=== PATIENT | male | born 1960 | race Caucasian/White ===

== ENCOUNTER 2017-02-23 17:11 | Inpatient (IN) | payer OTHER ==
[~2017-02-23] VITALS: Ht 172.7 cm; Wt 68.5 kg
[2017-02-23] MEDS: FAMOTIDINE 20 MG TAB PO SCH (01:20)
[~2017-02-23 17:11] MED LIST: CIPR500T4 PO; CIPR7.5D4 RIGHT EAR; IBUP-1542 PO
[2017-02-23] MEDS ORDERED: SOD CHLORIDE 0.9% 1,000 ML IV STA (20:34)
[2017-02-23] MEDS ORDERED: ASPIRIN 325 MG TAB PO STA (20:34)
[2017-02-23] MEDS ORDERED: LISI2.5T59 PO (20:41)
[2017-02-23 20:58] LABS: ADD SCAN DIFF NO
[2017-02-23 21:02] LABS: BASOPHIL # 0.1 10^3/ul (0.0-0.1); BASOPHILS % 0.5 % (0.0-2.0); EOSINOPHILS # 0.2 10^3/ul (0.0-0.5); EOSINOPHILS % 1.9 % (0.0-7.0); HEMATOCRIT 45.4 % (42.0-52.0); HEMOGLOBIN 14.6 g/dl (14.0-18.0); LYMPHOCYTES # 4.8 10^3/ul (0.8-2.9); LYMPHOCYTES % 43.8 % (15.0-51.0); MEAN CORPUSCULAR HEMOGLOBIN 26.8 pg (29.0-33.0); MEAN CORPUSCULAR HGB CONC 32.2 g/dl (32.0-37.0); MEAN CORPUSCULAR VOLUME 83.3 fl (82.0-101.0); MONOCYTE # 0.7 10^3/ul (0.3-0.9); MONOCYTES % 6.1 % (0.0-11.0); NEUTROPHIL # 5.2 10^3/ul (1.6-7.5); NEUTROPHILS % 47.5 % (39.0-77.0); PLATELET COUNT 213 10^3/UL (140-415); RED BLOOD COUNT 5.45 10^6/ul (4.70-6.10); RED CELL DISTRIBUTION WIDTH 13.4 % (11.5-14.5); WHITE BLOOD COUNT 10.9 10^3/ul (4.8-10.8)
[2017-02-23 21:05] LABS: INR 0.91; PARTIAL THROMBOPLASTIN TIME 26.9 Sec (25.0-35.0); PROTIME 12.3 Sec (12.2-14.2)
[2017-02-23 21:10] LABS: ALANINE AMINOTRANSFERASE 42 IU/L (13-69); ALBUMIN 4.3 g/dl (3.3-4.9); ALBUMIN/GLOBULIN RATIO 1.07; ALKALINE PHOSPHATASE 92 IU/L (42-121); ANION GAP 19 (8-16); ASPARTATE AMINO TRANSFERASE 23 IU/L (15-46); BILIRUBIN,INDIRECT 0.2 mg/dl (0-1.1); BILIRUBIN,TOTAL 0.2 mg/dl (0.2-1.3); BLOOD UREA NITROGEN 15 mg/dl (7-20); CALCIUM 9.5 mg/dl (8.4-10.2); CARBON DIOXIDE 25 mmol/L (21-31); CHLORIDE 102 mmol/L (97-110); CREATININE 1.28 mg/dl (0.61-1.24); GLUCOSE 99 mg/dl (70-220); SODIUM 142 mmol/L (135-144); TOTAL PROTEIN 8.3 g/dl (6.1-8.1)
[2017-02-23 21:23] LABS: TROPONIN-I < 0.012 ng/ml (0.00-0.12)
--- NOTE | 2017-02-23 21:26 | RADRPT ---
PROCEDURE: CT Brain without. CLINICAL INDICATION: CVA. TECHNIQUE: A CT of the brain was performed on multidetector high-resolution CT scanner utilizing a xial sections from the skull base through the vertex without contrast. The scan was reviewed in sof t tissue brain and high frequency resolution bone algorithm windows. Images were reviewed on a high -resolution PACS workstation. One or more the following does reduction techniques were utilized: Aut omated exposure control, adjustment of the mA/ or kV according to patient's size, or use of iterativ e reconstruction technique. The exam CTDI = 43.68 mGy and the DLP = 720.23 mGy-cm. COMPARISON: None available. FINDINGS: The ventricles and sulci are mildly prominent indicative of volume loss. There is no intracranial h emorrhage, mass effect or midline shift. No abnormal intra-axial or extra-axial fluid collections a re seen. The pierre/white matter differentiation is preserved. There are mild scattered foci of hypoattenuation in the white matter, which are nonspecific in etiol ogy but likely reflect chronic small vessel ischemic changes. The visualized paranasal sinuses are e ssentially clear. IMPRESSION: 1. No acute intracranial hemorrhage, transcortical infarction or mass effect. Please note MRI is mo re sensitive for detection of acute ischemia and can be obtained as clinically warranted. 2. Mild chronic small vessel ischemic changes. 3. Mild generalized cerebral volume loss. RPTAT: HFN .Adama Stephenson MD, MD Date Time Electronically viewed and signed by .Adama Stephenson MD, MD on 02/23/2017 21:25 .N/
--- NOTE | 2017-02-23 21:27 | RADRPT ---
PROCEDURE: XR Chest. CLINICAL INDICATION: Stroke. TECHNIQUE: Single frontal chest x-ray. COMPARISON: None available FINDINGS: The cardiomediastinal silhouette is unremarkable. Aortic atherosclerotic vascular calcifications and tortuosity are identified. No pneumothorax, pleural effusion or consolidation is seen. No acute osseous abnormality is noted. IMPRESSION: 1. No acute cardiopulmonary abnormality. 2. Aortic tortuosity and atherosclerosis. RPTAT: HFN .Adama Stephenson MD, Date Time Electronically viewed and signed by .Adama Stephenson MD, on 02/23/2017 21:27 .N/
[2017-02-23] MEDS ORDERED: NICARDipine HCL 30 MG CAPSULE PO ONE ×2 (21:30→23:30)
[2017-02-23] MEDS ORDERED: hydrALAzine 20 MG INJ IV ONE ×2 (21:30→23:30)
--- NOTE | 2017-02-23 21:53 | ERA ---
ER Documentation Chief Complaint Date/Time DATE: 02/23/17 TIME: 21:48 Chief Complaint LEFT SIDE BODY NUMBNESS,DIZZINESS ONSET LAST NIGHT HPI This is a 56-year-old male who said he was driving from [place] today. He said that around 7 PM last night stopped her arrest during driving and noticed that his left arm and leg were very numb and heavy. He said he was trying to walk and he had to drag his leg. He said that he had some mild blurry vision as well. No speech changes that he can think of. He said he got back in the car and drove all night to [place]. He said he slept most of the day today because he was fatigued and he wanted to see if he would be better when he woke up. He said when he woke up that still had the symptoms but they were less. He said currently he has some numbness to his left arm and his left leg feels slightly heavy. He also states when he walks he has to hold onto things because he feels like he is going to walk to the left side ROS All systems reviewed and are negative except as per history of present illness. Medications Home Meds Reported Medications Lisinopril* (Lisinopril*) 2.5 Mg Tablet, 2.5 MG PO DAILY, #30 TAB 02/23/17 Discontinued Reported Medications [none] Unknown Strength No Conflict Check 08/14/15 Discontinued Scripts Ibuprofen* (Motrin*) 600 Mg Tab, 600 MG PO Q6H Y for PAIN AND OR ELEVATED TEMP, #30 TAB Prov:JESSICA MATHIS MOHS SURGEON/GENERAL DERMATOLOGIST 08/14/15 Ciprofloxacin Hcl* (Ciprofloxacin Hcl*) 500 Mg Tablet, 500 MG PO BID for 7 Days , TAB Prov:JESSICA MATHIS MOHS SURGEON/GENERAL DERMATOLOGIST 08/14/15 Ciprofloxacin Hcl/Dexameth (Ciprodex Otic Suspension) 7.5 Ml Drops.susp, 4 DROP RIGHT EAR BID for 7 Days, EA Prov:JESSICA MATHIS NP 08/14/15 Allergies Allergies: Coded Allergies: No Known Allergy (Unverified , 02/23/17) PMhx/Soc History of Surgery: No Anesthesia Reaction: No Hx Neurological Disorder: No Hx Respiratory Disorders: No Hx Cardiac Disorders: No Hx Psychiatric Problems: No Hx Miscellaneous Medical Probl: Yes (HTN) Hx Alcohol Use: Yes (occasionally) Hx Substance Use: No Hx Tobacco Use: Yes FmHx Family History: No coronary disease Physical Exam Vitals Vital Signs Date Time Temp Pulse Resp B/P Pulse Ox O2 Delivery O2 Flow Rate FiO2 02/23/17 17:19 98.2 85 18 181/103 99 Physical Exam Const: Well-developed, well-nourished Head: Atraumatic, normocephalic Eyes: Normal Conjunctiva, PERRLA, EOMI, normal sclera, no nystagmus ENT: Normal External Ears, Nose and Mouth, moist mucus membranes. Neck: Full range of motion. No meningismus, no lymphadenopathy. Resp: Clear to auscultation bilaterally, no wheezing, rhonchi, rales Cardio: Regular rate and rhythm, no murmurs, S1 S2 present Abd: Soft, non tender x 4, non distended. Normal bowel sounds, no guarding or rebound, no pulsitile abdominal masses or bruits Skin: No petechiae or rashes, no ecchymosis , no maculopapular rash Back: No midline or flank tenderness Ext: No cyanosis, or edema, FROM x 4, normal inspection, neurovascularly intact x 4 Neur: Awake and alert, STR 5/5 x 3 left leg is 4 out of 5, sensation intact x left upper extremity is having a loss of sensation mild decreased sensation in the left cheek, no focal findings, cerebellum intact Psych: Normal Mood and Affect Result Diagram: 02/23/17201202/23/172012 Results 24 hrs Laboratory Tests Test 02/23/17 20:13 White Blood Count 10.910^3/ul Red Blood Count 5.4510^6/ul Hemoglobin 14.6g/dl Hematocrit 45.4% Mean Corpuscular Volume 83.3fl Mean Corpuscular Hemoglobin 26.8pg Mean Corpuscular Hemoglobin Concent 32.2g/dl Red Cell Distribution Width 13.4% Platelet Count 59360^3/UL Mean Platelet Volume 11.0fl Neutrophils % 47.5% Lymphocytes % 43.8% Monocytes % 6.1% Eosinophils % 1.9% Basophils % 0.5% Nucleated Red Blood Cells % 0.0/100WBC Neutrophils # 5.210^3/ul Lymphocytes # 4.810^3/ul Monocytes # 0.710^3/ul Eosinophils # 0.210^3/ul Basophils # 0.110^3/ul Nucleated Red Blood Cells # 0.010^3/ul Prothrombin Time 12.3Sec Prothrombin Time Ratio 1.0 INR International Normalized Ratio 0.91 Activated Partial Thromboplast Time 26.9Sec Sodium Level 142mmol/L Potassium Level 4.0mmol/L Chloride Level 102mmol/L Carbon Dioxide Level 25mmol/L Anion Gap 19 Blood Urea Nitrogen 15mg/dl Creatinine 1.28mg/dl Glucose Level 99mg/dl Calcium Level 9.5mg/dl Total Bilirubin 0.2mg/dl Direct Bilirubin 0.00mg/dl Indirect Bilirubin 0.2mg/dl Aspartate Amino Transf (AST/SGOT) 23IU/L Alanine Aminotransferase (ALT/SGPT) 42IU/L Alkaline Phosphatase 92IU/L Troponin I < 0.012ng/ml Total Protein 8.3g/dl Albumin 4.3g/dl Globulin 4.00g/dl Albumin/Globulin Ratio 1.07 Current Medications Medications (Trade) Dose Ordered Sig/Josefina Route PRN Reason Start Time Stop Time Status Last Admin Dose Admin Sodium Chloride (NS) 1,000 ml @ 1,000 mls/hr Q1H STAT IV 02/23/17 20:34 02/23/17 21:33 DC 02/23/17 20:43 Aspirin (Aspirin) 325 mg ONCE STAT PO 02/23/17 20:34 02/23/17 20:41 DC 02/23/17 20:48 Nicardipine HCl (Cardene) 30 mg ONCE ONCE PO 02/23/17 21:30 02/23/17 21:31 DC 02/23/17 21:45 Hydralazine HCl (Apresoline) 10 mg ONCE ONCE IV 02/23/17 21:30 02/23/17 21:31 DC 02/23/17 21:46 Procedures/MDM EKG: Rate/Rhythm: Normal Sinus Rhythm,NL intervals QRS, ST, QT: NORMAL MS, QRS, QT] Impression: NORMAL EKG PROCEDURE: CT Brain without. CLINICAL INDICATION: CVA. TECHNIQUE: A CT of the brain was performed on multidetector high-resolution CT scanner utilizing axial sections from the skull base through the vertex without contrast. The scan was reviewed in soft tissue brain and high frequency resolution bone algorithm windows. Images were reviewed on a high- resolution PACS workstation. One or more the following does reduction techniques were utilized: Automated exposure control, adjustment of the mA/ or kV according to patient's size, or use of iterative reconstruction technique. The exam CTDI = 43.68 mGy and the DLP = 720.23 mGy-cm. COMPARISON: None available. FINDINGS: The ventricles and sulci are mildly prominent indicative of volume loss. There is no intracranial hemorrhage, mass effect or midline shift. No abnormal intra- axial or extra-axial fluid collections are seen. The pierre/white matter differentiation is preserved. There are mild scattered foci of hypoattenuation in the white matter, which are nonspecific in etiology but likely reflect chronic small vessel ischemic changes. The visualized paranasal sinuses are essentially clear. IMPRESSION: 1. No acute intracranial hemorrhage, transcortical infarction or mass effect. Please note MRI is more sensitive for detection of acute ischemia and can be obtained as clinically warranted. 2. Mild chronic small vessel ischemic changes. 3. Mild generalized cerebral volume loss. RPTAT: HFN .Adama Stephenson MD, MD Date Time Electronically viewed and signed by .Adama Stephenson MD, MD on 02/23/2017 21: 25 .N/ CC: NGUYEN FELIX DO PROCEDURE: XR Chest. CLINICAL INDICATION: Stroke. TECHNIQUE: Single frontal chest x-ray. COMPARISON: None available FINDINGS: The cardiomediastinal silhouette is unremarkable. Aortic atherosclerotic vascular calcifications and tortuosity are identified. No pneumothorax, pleural effusion or consolidation is seen. No acute osseous abnormality is noted. IMPRESSION: 1. No acute cardiopulmonary abnormality. 2. Aortic tortuosity and atherosclerosis. RPTAT: HFN .Adama Stephenson MD, MD Date Time Electronically viewed and signed by .Adama Stephenson MD, MD on 02/23/2017 21: 27 .N/ CC: NGUYEN FELIX DO Patient states that he did not take his blood pressure medication for the past couple of days. Patient's blood pressure is elevated here 224/116. He is given Cardene and hydralazine Patient was given IV fluids and aspirin. The patient is having TIA hopefully. The symptoms are my getting much better but they are still there. We will have to wait to see if these resolve. He needs to be admitted for MRI and further workup for stroke/TIA Departure Diagnosis: Primary Impression: CVA (cerebral vascular accident) Qualified Code: I63.9 - Cerebrovascular accident (CVA), unspecified mechanism Additional Impression: Uncontrolled hypertension Condition: Stable NGUYEN FELIX DO Feb 23, 2017 21:52
[2017-02-23] MEDS ORDERED: SOD CHLORIDE 0.9% 1,000 ML IV SCH (22:02)
[2017-02-23] MEDS ORDERED: MAGNESIUM HYDROXIDE 30ML CUP PO PRN (22:30)
[2017-02-23] MEDS ORDERED: BISACODYL 10 MG SUPP PR PRN (22:30)
[2017-02-23] MEDS ORDERED: HYDROCODONE/APAP (5/325) TAB PO PRN (22:30)
[2017-02-23] MEDS ORDERED: hydrALAzine 20 MG INJ IV PRN (22:30)
[2017-02-23] MEDS ORDERED: ATORVASTATIN 40 MG TAB PO SCH (22:30)
[2017-02-23] MEDS ORDERED: ACETAMINOPHEN 325 MG TAB PO PRN (22:30)
[2017-02-23] MEDS ORDERED: NACL 0.9% 3 ML SYG IV SCH (22:30)
[2017-02-23] MEDS ORDERED: ONDANSETRON 4 MG INJ IV PRN ×2 (22:30)
[2017-02-23] MEDS ORDERED: DOCUSATE SODIUM 100 MG CAP PO PRN (22:30)
[2017-02-24] VITALS (7 sets, daily range): BP systolic 155–169; BP diastolic 87–99; PULSE 72–84; RESP 18–20; TEMP 97.7; Ht 172.7 cm; Wt 68.5 kg
--- NOTE | 2017-02-24 01:08 | RADRPT ---
PROCEDURE: MR Brain without contrast. CLINICAL INDICATION: Left-sided weakness. TECHNIQUE: An MRI of the brain was performed on a 1.5 sana scanner utilizing the following sequen jaylen: Sagittal T1 weighted, axial T2 weighted, axial FLAIR, coronal GRE, and axial diffusion weighted with ADC mapping. COMPARISON: None FINDINGS: 6 mm focus of restricted diffusion compatible with acute / early subacute areas of ischemic infarcti on in the right posterior theodore radiata and posterior limb of the internal capsule. Punctate focus of restricted diffusion in the right posterior basal ganglia. No hemorrhagic transformation, edema ,. No hypointense signal abnormalities are seen on the GRE images to suggest the presence of blood degr adation products. Scattered nonspecific T2 signal hyperintensity foci in the subcortical and periven tricular white matter compatible with sequelae of mild chronic microvascular ischemic injury. Remote lacunar infarct in the left basal ganglia. The brain parenchyma is grossly normal in morphology with preservation of pierre white differentiation . Prominent ventricles and subarachnoid spaces compatible with mild central cerebral volume loss. The posterior fossa contents, brainstem, seventh - eighth cranial nerve complexes, pituitary axis, o rbits, paranasal sinuses, and mastoid air cells are unremarkable. Normal flow voids are visible in the proximal intracranial arteries and dural sinuses, indicating pa tency. IMPRESSION: 1. Small foci of restricted diffusion compatible with acute / subacute ischemic infarction within th e right posterior basal ganglia/posterior limb of the internal capsule and the theodore radiata . No hemorrhagic transformation. 2. Mild chronic microvascular ischemic disease. 3. Mild central cerebral volume loss. RPTAT:AAJJ Physician Felisa Date Time Electronically viewed and signed by Physician Felisa on 02/24/2017 01:07 MADI/
--- NOTE | 2017-02-24 01:12 | RADRPT ---
PROCEDURE: MRA Brain. CLINICAL INDICATION: New TECHNIQUE: An MRA of the brain was performed on a 1.5 sana scanner utilizing 3-D [id number] MR angiography technique. Source and MIP images were reviewed. COMPARISON: None FINDINGS: The internal carotid arteries are patent and normal in caliber. The anterior cerebral arteries and t erminal branches are patent and normal in caliber . The middle cerebral arteries and terminal branc hes are patent and normal in caliber. The anterior posterior communicating arteries are intact. The posterior cerebral arteries internal b ranches are patent and normal in caliber. The basilar artery and vertebral arteries are patent and normal in caliber. The left vertebral art leti is dominant. Hypoplastic distal right vertebral artery. No evidence of vascular malformation or intracranial aneurysm. IMPRESSION: 1. Normal MRA of the brain. 2. Dominant left vertebral artery with hypoplastic distal right vertebral artery. RPTAT:AAJJ Physician Felisa Date Time Electronically viewed and signed by Physician Felisa on 02/24/2017 01:12 MADI/
[2017-02-24] MEDS: LISINOPRIL 10 MG TAB PO SCH ×2 (01:20→09:57)
[2017-02-24 07:40] LABS: ALBUMIN 3.9 g/dl (3.3-4.9); ALBUMIN/GLOBULIN RATIO 1.08; BILIRUBIN,INDIRECT 0.4 mg/dl (0-1.1); BILIRUBIN,TOTAL 0.4 mg/dl (0.2-1.3); CALCIUM 9.8 mg/dl (8.4-10.2); CREATININE 1.26 mg/dl (0.61-1.24); MAGNESIUM 2.1 mg/dl (1.7-2.5); POTASSIUM 3.9 mmol/L (3.5-5.1); TOTAL PROTEIN 7.5 g/dl (6.1-8.1)
[2017-02-24] MEDS ORDERED: ASPIRIN 81 MG TAB PO SCH (09:00)
[2017-02-24] MEDS ORDERED: ENOXAPARIN 40 MG/0.4 ML SYG SC SCH (09:00)
[2017-02-24] MEDS ORDERED: SOD CHLORIDE 0.9% 1,000 ML IV SCH (09:30)
--- NOTE | 2017-02-24 09:37 | RADRPT ---
PROCEDURE: Carotid ultrasound CLINICAL INDICATION: Stroke, carotid bruits TECHNIQUE: Jane scale, color doppler, spectral doppler ultrasound of the bilateral carotid and ulysses tebral arteries. This study indirectly references the measurement of the distal ICA diameter as the denominator for s tenosis measurement. Validated velocity measurements with angiographic measurements, velocity criter ia are extrapolated from diameter data as defined by: *Cartoid artery stenosis: jane-scale and Doppl er US diagnosis. Society of Radiologists in Ultrasound Consensus Conference. Radiology 2003; 229: 34 0-346. SRU Consensus Conference Criteria for the Diagnosis of Carotid Artery Stenosis* Degree of Stenosis, % ICA PSV, cm/sec Plaque Estimate, % ICA/CCA PSV Ratio Normal <125 None <2.0 <50 <125 <50 <2.0 50 69 125-230 >50 2.0-4.0 >70 but less than near occlusion >230 >50 <4.0 Near occlusion High, low, or undetectable Visible Variable Total occlusion Undetectable Visible, no detectable lumen Not applicable COMPARISON: No prior studies are available for comparison. FINDINGS: Location Right CCA69 cm/sec Prox ICA 48 cm/sec Mid ICA62 cm/sec Dist ICA40 cm/sec ECA70 cm/sec ICA/CCA1.2 Left CCA82 cm/sec Prox ICA 45 cm/sec Mid ICA53 cm/sec Dist ICA55 cm/sec ECA77 cm/sec ICA/CCA0.8 Plaque burden: No significant plaque is seen. Antegrade flow is seen within the vertebral arteries bilaterally. IMPRESSION: No evidence of a hemodynamically significant carotid stenosis. RPTAT: AADD .Yared Culver MD, Date Time Electronically viewed and signed by .Yared Culver MD, MD on 02/24/2017 09:37 .B/
[2017-02-24] MEDS: FAMOTIDINE 20 MG TAB PO SCH (09:57)
--- NOTE | 2017-02-24 12:17 | RADRPT ---
Echocardiogram Report Patient Name: PAOLO WALL Gender: Male Date: 1960 Study Date: 24-Feb-2017 [employer]: Rudy Chin [facility] Location: 3303 Ref. Physician: SAMANTHA JEFFERSON Quality: Good Procedures: Transthoracic echocardiogram with complete 2D, M-Mode, and doppler examination. Indications: Cerebrovascular Accident. Hypertension. 2D/M Mode Doppler Measurement Value Normal Ranges Measurement Value Normal Ranges LVIDd 2D 4.1 3.5 - 5.6 cm AV Peak Kendall 1.2 m/sec LVIDs 2D 3.2 2.1 - 4.1 cm AV Peak PG 5.4 mmHg LVPWd 2D 1.7 0.6 - 1.1 cm LVOT Peak Kendall 1.1 m/sec IVSd 2D 1.7 0.6 - 1.1 cm LVOT Peak PG 4.8 mmHg AoR Diam 2D 3.3 2.0 - 3.7 cm MV E Peak Kendall 0.3 m/sec EDV 2D 75.9 cm3 MV A Peak Kendall 0.7 m/sec ESV 2D 32.6 cm3 MV E/A 0.5 LA Dimen 2D 2.8 2.3 - 4.0 cm MV Decel Time 136 msec MV Decel [place] 2 MV E/A 0.5 TR Peak Kendall 1.8 m/sec TR Peak PG 13.1 mmHg RVSP 16.0 mmHg Findings Left Ventricle: Normal left ventricular systolic function. Normal left ventricular cavity size. Severe concentric left ventricular hypertrophy. Ejection fraction is visually estimated at 65 %. Tissue Doppler/Mitral Doppler indices are consistent with impaired relaxation (Stage I diastolic dysfunction). Right Ventricle: Normal right ventricular size. Normal right ventricular systolic function. Left Atrium: The left atrium is normal in size. Right Atrium: The right atrium is normal in size. Mitral Valve: Normal appearance of the mitral valve. Mild mitral annular calcification. Trace mitral regurgitation. Aortic Valve: Normal appearance of the aortic valve. No significant aortic stenosis or insufficiency. Tricuspid Valve: Normal appearance of the tricuspid valve. Estimated peak PA systolic pressure 16 mmHg. There is trace tricuspid regurgitation. Pulmonic Valve: Normal pulmonic valve appearance. There is trace pulmonic regurgitation. Pericardium: Normal pericardium with no significant pericardial effusion. Aorta: Normal aortic root. IVC: Normal size and normal respiratory collapse consistent with normal right atrial pressure. Conclusions 1.Normal left ventricular systolic function. Normal left ventricular cavity size. Severe concentric left ventricular hypertrophy. Ejection fraction is visually estimated at 65 %. Tissue Doppler/Mitral Doppler indices are consistent with impaired relaxation (Stage I diastolic dysfunction). 2.Normal right ventricular size. Normal right ventricular systolic function. 3.The left atrium is normal in size. 4.The right atrium is normal in size. 5.No significant valvular stenosis or regurgitation seen. 6.Normal pericardium with no significant pericardial effusion. Electronically Signed By: Selvin Nava 24-Feb-2017 12:16:33 -0700 Patient Name: PAOLO WALL Study Date: 24-Feb-2017 [id number]
--- NOTE | 2017-02-24 13:09 | PDOCDIS ---
Discharge Instructions CONDITION Patient Condition: Stable HOME CARE INSTRUCTIONS: Diet Instructions: Low Fat /Cholesterol ACTIVITY: Activity Restrictions: Rest between Activity FOLLOW UP/APPOINTMENTS Follow-up Plan Follow-up with primary care physician regarding hypertension and subacute CVA with no residual deficit in 1 week ANJUM JEFFERSON Feb 24, 2017 13:09
--- NOTE | 2017-02-24 13:09 | HP ---
Date/Time of Note Date/Time of Note DATE: 02/24/17 TIME: 12:35 Assessment/Plan VTE Prophylaxis VTE Prophylaxis Intervention: LMWH Lines/Catheters IV Catheter Type (from [facility]): Peripheral IV Assessment/Plan Assessment/Plan 56-year-old male: 1. 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 I have counseled him regarding being compliant with his medications and also to stop smoking. No arrhythmias, EKG with normal sinus rhythm, 2D echocardiogram within normal therefore continue aspirin for secondary prevention of CVA Blood pressure control with lisinopril 10 mg p.o. twice daily Patient has no residual neurological deficit therefore he will be discharged home today with outpatient follow-up with his PCP. 2. Hypertension: Lisinopril increased to 10 mg p.o. twice daily. 3. Hyperlipidemia: Patient has been started on Lipitor 4. Heavy tobacco use: He will be offered nicotine patch, he agrees to quit. 5. Mild renal insufficiency: Resolving, patient advised to drink enough water. 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 Patient reports that Wednesday night he drove from [place], he had the episode of left hemiparesis both upper and lower extremity. He managed to get to his house, he took his lisinopril for blood pressure and went to bed. Couple hours later he woke up with persistent symptoms, he took Advil and went back to bed. He woke up later that evening asymptomatic, no hemiparesis. He did not seek medical attention at that time. However yesterday morning he woke up again with mild to moderate left hemiparesis therefore he came to the emergency department. Since by the time he presented to the emergency department is been at least 24 hours, no stroke code was called. He was found to be hypertensive with systolic blood pressures in the 200. Hypertension was treated, CT head was done which was negative, hemiparesis was improving. MRIs were done that did confirm a small foci of restricted diffusion compatible with acute / subacute ischemic infarction within the right posterior basal ganglia/posterior limb of the internal capsule and the theodore radiata . Patient has been seen by physical therapy this morning, he is asymptomatic at this time. No signs of arrhythmia on telemetry. He has been counseled to stop smoking, he will be provided with a nicotine patch. He will be placed on aspirin for secondary prevention and his lisinopril dosing has been increased for blood pressure control. He will be discharged home today with outpatient follow-up with his primary care physician ROS Constitutional: no complaints Respiratory: no complaints Cardiovascular: no complaints Gastrointestinal: no complaints Genitourinary: no complaints Musculoskeletal: no complaints Neurologic: focal-weakness (Left hemiparesis resolved) Endocrine: no complaints PMH/Family/Social Past Medical History Medical History: hypertension Past Surgical History Past Surgical Hx: no surgical history Family History Significant Family History: no pertinent family hx Social History Alcohol Use: rarely Smoking Status: Current every day smoker (At least one pack a day for the past 30 years at least) Drug Use: none Exam/Review of Systems Vital Signs Vitals Vital Signs Date Time Temp Pulse Resp B/P Pulse Ox O2 Delivery O2 Flow Rate FiO2 02/24/17 12:19 72 02/24/17 11:39 97.7 18 155/93 98 02/24/17 07:31 Room Air Exam Constitutional: alert, oriented, well developed Respiratory: clear to auscultation, normal air movement Cardiovascular: nl pulses, regular rate and rhythm Gastrointestinal: non-tender, soft Musculoskeletal: nl extremities to inspection, other (No edema, clubbing or cyanosis) Extremities: normal pulses 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 daily Current Medications Ondansetron HCl (Zofran Inj) 4 mg Q6H PRN IV NAUSEA AND/OR VOMITING; Start at 22:30 Aspirin (Aspirin) 81 mg DAILY PO Last administered on 02/24/17t 09:58; Admin Dose 81 MG; Start 02/24/17 at 09:00 Acetaminophen/ Hydrocodone Bitart (Rayne (5/325)) 1 tab Q6H PRN PO PAIN LEVEL 4 -6; Start 02/23/17 at 22:30 Docusate Sodium (Colace) 100 mg Q12H PRN PO CONSTIPATION; Start 02/23/17 at 22: 30 Magnesium Hydroxide (Milk Of Mag) 30 ml DAILY PRN PO CONSTIPATION; Start at 22:30 Bisacodyl (Dulcolax Supp) 10 mg DAILY PRN OR CONSTIPATION; Start 02/23/17 at 22 :30 Famotidine (Pepcid) 20 mg Q12 PO Last administered on 02/24/17 09:57; Admin Dose 20 MG; Start 02/23/17 at 22:30 Enoxaparin Sodium (Lovenox) 40 mg DAILY SC Last administered on 02/24/17 09:59 ; Admin Dose 40 MG; Start 02/24/17 at 09:00 Hydralazine HCl (Apresoline) 10 mg Q8H PRN IV ELEVATED BLOOD PRESSURE; Start at 22:30 Lisinopril (Zestril) 10 mg BID PO Last administered on 02/24/17 09:57; Admin Dose 10 MG; Start 02/23/17 at 22:30 Atorvastatin Calcium 40 mg 40 mg HS PO ; Start 02/23/17 at 22:30 Sodium Chloride (NS) 1,000 ml @ 100 mls/hr Q10H IV Last administered on 09:58; Admin Dose 100 MLS/HR; Start 02/24/17 at 09:30 Procedures Procedures PROCEDURE: XR Chest. CLINICAL INDICATION: Stroke. TECHNIQUE: Single frontal chest x-ray. COMPARISON: None available FINDINGS: The cardiomediastinal silhouette is unremarkable. Aortic atherosclerotic vascular calcifications and tortuosity are identified. No pneumothorax, pleural effusion or consolidation is seen. No acute osseous abnormality is noted. IMPRESSION: 1. No acute cardiopulmonary abnormality. 2. Aortic tortuosity and atherosclerosis. PROCEDURE: CT Brain without. CLINICAL INDICATION: CVA. TECHNIQUE: A CT of the brain was performed on multidetector high-resolution CT scanner utilizing axial sections from the skull base through the vertex without contrast. The scan was reviewed in soft tissue brain and high frequency resolution bone algorithm windows. Images were reviewed on a high- resolution PACS workstation. One or more the following does reduction techniques were utilized: Automated exposure control, adjustment of the mA/ or kV according to patient's size, or use of iterative reconstruction technique. The exam CTDI = 43.68 mGy and the DLP = 720.23 mGy-cm. COMPARISON: None available. FINDINGS: The ventricles and sulci are mildly prominent indicative of volume loss. There is no intracranial hemorrhage, mass effect or midline shift. No abnormal intra- axial or extra-axial fluid collections are seen. The jane/white matter differentiation is preserved. There are mild scattered foci of hypoattenuation in the white matter, which are nonspecific in etiology but likely reflect chronic small vessel ischemic changes. The visualized paranasal sinuses are essentially clear. IMPRESSION: 1. No acute intracranial hemorrhage, transcortical infarction or mass effect. Please note MRI is more sensitive for detection of acute ischemia and can be obtained as clinically warranted. 2. Mild chronic small vessel ischemic changes. 3. Mild generalized cerebral volume loss. PROCEDURE: MR Brain without contrast. CLINICAL INDICATION: Left-sided weakness. TECHNIQUE: An MRI of the brain was performed on a 1.5 sana scanner utilizing the following sequences: Sagittal T1 weighted, axial T2 weighted, axial FLAIR, coronal GRE, and axial diffusion weighted with ADC mapping. COMPARISON: None FINDINGS: 6 mm focus of restricted diffusion compatible with acute / early subacute areas of ischemic infarction in the right posterior theodore radiata and posterior limb of the internal capsule. Punctate focus of restricted diffusion in the right posterior basal ganglia. No hemorrhagic transformation, edema,. No hypointense signal abnormalities are seen on the GRE images to suggest the presence of blood degradation products. Scattered nonspecific T2 signal hyperintensity foci in the subcortical and periventricular white matter compatible with sequelae of mild chronic microvascular ischemic injury. Remote lacunar infarct in the left basal ganglia. The brain parenchyma is grossly normal in morphology with preservation of jane white differentiation. Prominent ventricles and subarachnoid spaces compatible with mild central cerebral volume loss. The posterior fossa contents, brainstem, seventh - eighth cranial nerve complexes, pituitary axis, orbits, paranasal sinuses, and mastoid air cells are unremarkable. Normal flow voids are visible in the proximal intracranial arteries and dural sinuses, indicating patency. IMPRESSION: 1. Small foci of restricted diffusion compatible with acute / subacute ischemic infarction within the right posterior basal ganglia/posterior limb of the internal capsule and the theodore radiata . No hemorrhagic transformation. 2. Mild chronic microvascular ischemic disease. 3. Mild central cerebral volume loss. RPTAT:AAJJ Dori Ho, Physician Date Time Electronically viewed and signed by Physician Felisa on 02/24/2017 01:07 PROCEDURE: MRA Brain. CLINICAL INDICATION: New TECHNIQUE: An MRA of the brain was performed on a 1.5 sana scanner utilizing 3-D [id number] MR angiography technique. Source and MIP images were reviewed. COMPARISON: None FINDINGS: The internal carotid arteries are patent and normal in caliber. The anterior cerebral arteries and terminal branches are patent and normal in caliber . The middle cerebral arteries and terminal branches are patent and normal in caliber. The anterior posterior communicating arteries are intact. The posterior cerebral arteries internal branches are patent and normal in caliber. The basilar artery and vertebral arteries are patent and normal in caliber. The left vertebral artery is dominant. Hypoplastic distal right vertebral artery. No evidence of vascular malformation or intracranial aneurysm. IMPRESSION: 1. Normal MRA of the brain. 2. Dominant left vertebral artery with hypoplastic distal right vertebral artery. RPTAT:AAJJ Dori Ho, Physician Date Time Electronically viewed and signed by Physician Felisa on 02/24/2017 01:12 PROCEDURE: Carotid ultrasound CLINICAL INDICATION: Stroke, carotid bruits TECHNIQUE: Ajne scale, color doppler, spectral doppler ultrasound of the bilateral carotid and vertebral arteries. This study indirectly references the measurement of the distal ICA diameter as the denominator for stenosis measurement. Validated velocity measurements with angiographic measurements, velocity criteria are extrapolated from diameter data as defined by: *Cartoid artery stenosis: jane-scale and Doppler US diagnosis. Society of Radiologists in Ultrasound Consensus Conference. Radiology 2003; 229: 340-346. SRU Consensus Conference Criteria for the Diagnosis of Carotid Artery Stenosis* Degree of Stenosis, % ICA PSV, cm/sec Plaque Estimate, % ICA/CCA PSV Ratio Normal <125 None <2.0 <50 <125 <50 <2.0 50 69 125-230 >50 2.0-4.0 >70 but less than near occlusion >230 >50 <4.0 Near occlusion High, low, or undetectable Visible Variable Total occlusion Undetectable Visible, no detectable lumen Not applicable COMPARISON: No prior studies are available for comparison. FINDINGS: Location Right CCA 69 cm/sec Prox ICA 48 cm/sec Mid ICA 62 cm/sec Dist ICA 40 cm/sec ECA 70 cm/sec ICA/CCA 1.2 Left CCA 82 cm/sec Prox ICA 45 cm/sec Mid ICA 53 cm/sec Dist ICA 55 cm/sec ECA 77 cm/sec ICA/CCA 0.8 Plaque burden: No significant plaque is seen. Antegrade flow is seen within the vertebral arteries bilaterally. IMPRESSION: No evidence of a hemodynamically significant carotid stenosis. RPTAT: AADD .Yared Culver MD, MD Date Time Electronically viewed and signed by .Yared Culver MD, MD on 02/24/2017 09:37 .B/ Echocardiogram Report Patient Name: PAOLO WALL Gender: Male Date: 1960 Study Date: 24-Feb-2017 Tennis Net Maker: Rudy Chin RDCS [facility] Ref. Physician: SAMANTHA JEFFERSON Quality: Good Procedures: Transthoracic echocardiogram with complete 2D, M-Mode, and doppler examination. Indications: Cerebrovascular Accident. Hypertension. 2D/M Mode Doppler Measurement Value Normal Ranges Measurement Value Normal Ranges LVIDd 2D 4.1 3.5 - 5.6 cm AV Peak Kendall 1.2 m/sec LVIDs 2D 3.2 2.1 - 4.1 cm AV Peak PG 5.4 mmHg LVPWd 2D 1.7 0.6 - 1.1 cm LVOT Peak Kendall 1.1 m/sec IVSd 2D 1.7 0.6 - 1.1 cm LVOT Peak PG 4.8 mmHg AoR Diam 2D 3.3 2.0 - 3.7 cm MV E Peak Kendall 0.3 m/sec EDV 2D 75.9 cm3 MV A Peak Kendall 0.7 m/sec ESV 2D 32.6 cm3 MV E/A 0.5 LA Dimen 2D 2.8 2.3 - 4.0 cm MV Decel Time 136 msec MV Decel [place] 2 MV E/A 0.5 TR Peak Kendall 1.8 m/sec TR Peak PG 13.1 mmHg RVSP 16.0 mmHg Findings Left Ventricle: Normal left ventricular systolic function. Normal left ventricular cavity size. Severe concentric left ventricular hypertrophy. Ejection fraction is visually estimated at 65 %. Tissue Doppler/Mitral Doppler indices are consistent with impaired relaxation (Stage I diastolic dysfunction). Right Ventricle: Normal right ventricular size. Normal right ventricular systolic function. Left Atrium: The left atrium is normal in size. Right Atrium: The right atrium is normal in size. Mitral Valve: Normal appearance of the mitral valve. Mild mitral annular calcification. Trace mitral regurgitation. Aortic Valve: Normal appearance of the aortic valve. No significant aortic stenosis or insufficiency. Tricuspid Valve: Normal appearance of the tricuspid valve. Estimated peak PA systolic pressure 16 mmHg. There is trace tricuspid regurgitation. Pulmonic Valve: Normal pulmonic valve appearance. There is trace pulmonic regurgitation. Pericardium: Normal pericardium with no significant pericardial effusion. Aorta: Normal aortic root. IVC: Normal size and normal respiratory collapse consistent with normal right atrial pressure. Conclusions 1. Normal left ventricular systolic function. Normal left ventricular cavity size. Severe concentric left ventricular hypertrophy. Ejection fraction is visually estimated at 65 %. Tissue Doppler/Mitral Doppler indices are consistent with impaired relaxation (Stage I diastolic dysfunction). 2. Normal right ventricular size. Normal right ventricular systolic function. 3. The left atrium is normal in size. 4. The right atrium is normal in size. 5. No significant valvular stenosis or regurgitation seen. 6. Normal pericardium with no significant pericardial effusion. Electronically Signed By: Selvin Nava 24-Feb-2017 12:16:33 -0700 ANJUM JEFFERSON Feb 24, 2017 12:53
[2017-02-24] MEDS ORDERED: ATOR40TA68 PO (13:12)
[2017-02-24] MEDS ORDERED: ASPI81TA3 PO (13:12)
[2017-02-24] MEDS ORDERED: LISI10TA2 PO (13:12)
[2017-02-24] MEDS ORDERED: NICO1PAT6 TD (13:12)
[2017-02-24] MEDS ORDERED: NICOTINE (21 MG/24 HR) PATCH TRANSDERM ONE (14:30)
== END 2017-02-24 14:05 | disposition home or self-care (01) | DRG 66 ==
LOC: E/R 17:11 → MS3 22:03 → TEL 02-24 00:54
PROVIDERS: ADMIT Internal Medicine; ATTEND Internal Medicine
DX: I63.8 Other cerebral infarction (principal); I10 Essential (primary) hypertension; F17.200 Nicotine dependence, unspecified, uncomplicated; E78.5 Hyperlipidemia, unspecified; N28.9 Disorder of kidney and ureter, unspecified
CPT/HCPCS: 36415; 70450; 70544; 70551; 71010; 80053; 80061; 83036; 83735; 84484; 85025; 85610; 85730; 93005; 93306; 93880; 96374; 97162; J0360; J1650; J7030